=== PATIENT | male | born 1980 | race Caucasian/White ===

== ENCOUNTER 2018-06-05 03:08 | Emergency (ER) | payer SELFPAY ==
[~2018-06-05] VITALS: Ht 175.3 cm; Wt 117.9 kg
== END 2018-06-05 05:14 | disposition home or self-care (01) ==
LOC: ED 03:08
DX: T78.1XXA Other adverse food reactions, not elsewhere classified, initial encounter (principal); L29.9 Pruritus, unspecified; F17.200 Nicotine dependence, unspecified, uncomplicated; Z88.0 Allergy status to penicillin
CPT/HCPCS: 96374; 96375; 99283-25; J1200; J2930

== ENCOUNTER 2022-12-03 17:45 | Emergency (ER) | payer OTHER ==
[~2022-12-03] VITALS: Ht 175.3 cm; Wt 153.8 kg
[~2022-12-03 17:45] MED LIST: CLEOCIN HCL300 MG PO; HYDROCODON-ACE1 EA10 PO; LEVOFLOXACIN750 MG PO; NICOTINE LOZENGE4 MG BUCCAL
[2022-12-03 20:35] VITALS: BP 125/71
== END 2022-12-03 20:35 | disposition home or self-care (01) ==
LOC: ED 17:45
DX: T40.411A Poisoning by fentanyl or fentanyl analogs, accidental (unintentional), initial encounter (principal); R06.81 Apnea, not elsewhere classified; F17.200 Nicotine dependence, unspecified, uncomplicated; Z88.0 Allergy status to penicillin
CPT/HCPCS: 99283; J3490

== ENCOUNTER 2023-12-15 15:23 | Emergency (ER) | payer OTHER ==
[~2023-12-15] VITALS: Ht 175.3 cm; Wt 139.7 kg
[~2023-12-15 15:23] MED LIST changes: +ACETAMINOPHEN325 M1 PO; +CYCLOBENZAPRINE10 MG PO; +TAMIFLU75 MG PO
[2023-12-15 16:23] VITALS: BP 127/79
== END 2023-12-15 16:23 | disposition home or self-care (01) ==
LOC: ED 15:23
DX: S61.512A Laceration without foreign body of left wrist, initial encounter (principal); F17.200 Nicotine dependence, unspecified, uncomplicated; Z88.0 Allergy status to penicillin; W26.0XXA Contact with knife, initial encounter
CPT/HCPCS: 12004; 99282-25

== ENCOUNTER 2024-05-14 08:45 | Inpatient (IN) | payer OTHER ==
[~2024-05-14] VITALS: Ht 175.3 cm; Wt 135.1 kg
--- NOTE | 2024-05-14 01:40 | NUR ---
IN RM TO DO pt VS. pt RESTING ON HIS LEFT SIDE. pt DENIES ANY OTHER NEEDS AT THIS TIME. CALL LIGHT WITHIN REACH. ASSESSMENT DONE. pt ON 2LNC SATTING AT 95%.
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
[2024-05-14] MEDS ORDERED: DISKETS40 MG PO (09:14)
[2024-05-14] MEDS ORDERED: ACETAMINOPHEN 500 MG TAB PO ONE (09:15)
[2024-05-14 09:24] LABS: HEMATOCRIT 40.7 % (35.0-50.0); HEMOGLOBIN 13.4 g/dL (12.0-18.0); MCH 25.7 (27-36); MCHC 32.8 g/dl (30-36); MCV 78.5 fl (81-99); PLATELET COUNT 388 K/uL (140-440); RBC 5.19 M/ul (4.3-5.7); RDW 15.6 (10.5-15.0)
[2024-05-14] MEDS ORDERED: ondansetron HCL 4 MG/2 ML VIAL IV ONE (09:30)
[2024-05-14 09:39] LABS: ALBUMIN 2.2 g/dL (3.4-5.0); ALBUMIN/GLOBULIN RATIO 0.42 (1.1-2.4); ANION GAP 11.9 (7-21); BILIRUBIN, TOTAL 0.5 mg/dL (0.2-1.0); BUN/CREATININE RATIO 14.28 (6.0-28.6); CALCIUM 8.8 mg/dL (8.5-10.1); CREATININE, SERUM 0.84 mg/dL (0.70-1.30); POTASSIUM 2.9 mmol/L (3.5-5.1); PROTEIN, TOTAL 7.4 g/dL (6.4-8.2)
[2024-05-14] MEDS ORDERED: CEFTRIAXONE SODIUM 2 GM VIAL ONE (09:41)
[2024-05-14 09:44] LABS: LACTIC ACID, BLOOD 1.6 mmol/L (0.4-2.0)
[2024-05-14] MEDS ORDERED: AZITHROMYCIN 250 MG TAB PO ONE (09:45)
[2024-05-14] MEDS ORDERED: SODIUM CHLORIDE 0.9% 1,000 ML IV PRN (09:45)
[2024-05-14] MEDS ORDERED: CEFTRIAXONE SODIUM 2 GM in SODIUM CHLORIDE 0.9% 100 ML IV ONE (09:45)
[2024-05-14 10:01] LABS: BANDS, MANUAL DIFF 6; LYMPHOCYTES, MANUAL DIFF 19; MONOCYTES, MANUAL DIFF 5; NEUTROPHILS, MANUAL DIFF 70
[2024-05-14 10:11] LABS: BILIRUBIN, URINE NEGATIVE (negative); BLOOD/HGB, URINE TRACE-I (Negative); KETONE, URINE NEGATIVE (Negative); LEUK ESTERASE, URINE NEGATIVE (negative); NITRITE, URINE NEGATIVE (negative)
[2024-05-14 10:14] LABS: INFLUENZA B NAA NEGATIVE (NEGATIVE); RESPIRATORY SYNCYTIAL VIR NAA NEGATIVE (NEGATIVE)
[2024-05-14 10:24] LABS: BACTERIA, URINE NONE SEEN /hpf (negative); CRYSTALS, URINE NONE SEEN (0-1+); EPITHELIAL CELLS, URINE SQUAMOUS 1+ /lpf (0-1+); RED BLOOD CELLS, URINE 0-1 /hpf (0-5); WHITE BLOOD CELLS, URINE 0-1 /HPF (0-5)
[2024-05-14 10:25] LABS: CASTS, URINE NONE SEEN \\lpf; COLLECTION TYPE, URINE CLEAN CATCH; REFLEX CULTURE, URINE No (No)
[2024-05-14] MEDS ORDERED: POTASSIUM CHLORIDE 20 MEQ/15 ML CUP PO ONE (11:30)
[2024-05-14] MEDS ORDERED: ACETAMINOPHEN 325 MG TAB PO PRN (12:15)
[2024-05-14] MEDS ORDERED: SODIUM CHLORIDE 0.9% 1,000 ML IV SCH (12:15)
[2024-05-14] MEDS ORDERED: ondansetron HCL 4 MG/2 ML VIAL IV PRN (12:15)
--- NOTE | 2024-05-14 13:15 | NUR ---
PT REPORT RECIEVED FROM ED, RN. PT BROUGHT VIA STRETCHER TO [facility] FLOOR. PT IS CURRENTLY ON 2L NC O2 SAT 96%. PT REPORTED NO SOB, BUT STATES " HIS LUNGS BURN WHEN TAKING DEEP BREATHS". PT STATES HE DOES NOT NEED ANYTHING FOR PAIN AT THIS TIME. PT ORIENTED TO ROOM AND HAS NO CONCERNS AT THIS TIME CALL LIGHT IN REACH.
[2024-05-14 13:28] VITALS: BP 115/68
[2024-05-14 14:00] VITALS: BP 115/68
--- NOTE | 2024-05-14 15:11 | NUR ---
ALERT AND ORIENTED IN BED. OXYGEN PER NC IN PLACE. PATIENT LIVES IN HOUSE. STATES HE HAS NO STAIRS. NO DME. DRIVES AT BASELINE. HAS NO CURRENT PCP. PATIENT HAS NO FINANCIAL DIFFICULTIES AT THIS TIME. PLAN TO DC TO HOME WHEN MEDICALLY CLEARED. NO KNOWN CM NEEDS AT THIS TIME.
--- NOTE | 2024-05-14 15:26 | NUR ---
PT LAYING IN BED WITH 2L [address] PT REPORTS NO SOB AND STATES HE HAS NO CONCERNS AT THIS TIME CALL LIT IN REACH.
--- NOTE | 2024-05-14 16:12 | NUR ---
PT RESTING IN ROOM WITH EYES CHLOSED AND CHEST RISE EQUAL BILAT. PT HAS CALL LIGHT IN REACH.
[2024-05-14] MEDS ORDERED: ALBUTEROL SULFATE 0.083% 3 ML VIAL INH PRN (17:15)
--- NOTE | 2024-05-14 17:23 | EKG ---
[facility] [address] [facility] [place] [address] Signed Sinus tachycardia Nonspecific ST abnormality Abnormal ECG When compared with ECG of 29-JUN-2022 10:44, No significant change was found Confirmed by Alicia Hyman MD () on 05/14/2024 5:23:07 PM Electronically Signed By: ALICIA HYMAN MD 05/14/24 1723 PATIENT NAME: MONIEKRISTINE DAVID Electrocardiogram DATE OF : 84 PHYSICIAN: ALICIA HYMAN MD REPORT #: [id number] REPORT IS CONFIDENTIAL AND NOT TO BE RELEASED WITHOUT AUTHORIZATION
[2024-05-14 17:27] VITALS: BP 122/67
[2024-05-14] MEDS ORDERED: guaiFENesin 600 MG TABCR PO PRN (17:30)
[2024-05-14] MEDS ORDERED: METHADONE HCL 10 MG TAB PO SCH (17:30)
[2024-05-14] MEDS ORDERED: BENZONATATE 100 MG CAP PO PRN (17:30)
[2024-05-14 18:14] VITALS: BP 122/67
--- NOTE | 2024-05-14 18:17 | NUR ---
PT STATES LUNGS FEEL BETTER AFTER WORKING WITH RT. PT IS NOW TAKING A SHOWER. PT HAS NO CURRENT CONCERNS AT THIS TIME. CALL CORD IN REACH.
--- NOTE | 2024-05-14 18:52 | NUR ---
PT RETURNED TO BED AFTER HAVING A SHOWER, PT HAS PAIN /, NO SOB, PT HAS NO CONCERNS AT THIS TIME CALL LIGHT IN REACH.
--- NOTE | 2024-05-14 19:10 | NUR ---
REPORT RECEIVED FROM EDUARDA ALMONTE. pt RESTING IN THE BED. pt DENIES ANY NEEDS AT THIS TIME. BOARD UPDATED. CALL LIGHT WITHIN REACH.
[2024-05-14 21:00] VITALS: BP 117/64
[2024-05-14] MEDS ORDERED: MELATONIN 3 MG TAB PO PRN (21:00)
[2024-05-14 21:05] VITALS: BP 117/64
--- NOTE | 2024-05-14 21:05 | NUR ---
ASSESSMENT AND VITAL SIGNS DONE. EXP WHEEZES THROUGHT OUT LUNGS. pt SITTING UP IN THE BED. ICE WATER REFRESHED. pt DENIES ANY OTHER NEEDS AT THIS TIME. CALL LIGHT WITHIN REACH. IV ASSESSED, WNL.
--- NOTE | 2024-05-14 23:10 | NUR ---
IN RM TO CHECK ON pt. pt STATE HE IS HOT AND WOULD LIKE HIS TV TURNED DOWN THIS RN FOUND A TV REMOTE AND LEFT THE DOOR OPEN FOR pt TO COOL DOWN THE RM. pt DENIES ANY OTHER NEEDS AT THIS TIME. CALL LIGHT WITHIN REACH.
[2024-05-15] VITALS (11 sets, daily range): BP systolic 101–144; BP diastolic 51–81
--- NOTE | 2024-05-15 03:32 | NUR ---
pt RESTING IN THE BED WITH EYES CLOSED. RR EVEN AND UNLABORED. CALL LIGHT WITHIN REACH.
[2024-05-15 06:01] LABS: HEMATOCRIT 36.4 % (35.0-50.0); MCH 25.9 (27-36); MCHC 33.1 g/dl (30-36); MCV 78.3 fl (81-99); PLATELET COUNT 386 K/uL (140-440); RBC 4.64 M/ul (4.3-5.7); RDW 15.9 (10.5-15.0)
--- NOTE | 2024-05-15 06:04 | NUR ---
VITAL SIGNS DONE. pt DENIES ANY OTHER NEEDS AT THIS TIME. CALL LIGHT WITHIN REACH.
[2024-05-15 06:19] LABS: ALBUMIN 1.6 g/dL (3.4-5.0); ALBUMIN/GLOBULIN RATIO 0.34 (1.1-2.4); ANION GAP 10.2 (7-21); BILIRUBIN, TOTAL 0.3 mg/dL (0.2-1.0); BUN/CREATININE RATIO 11.68 (6.0-28.6); CREATININE, SERUM 0.77 mg/dL (0.70-1.30); MAGNESIUM 2.1 mg/dL (1.8-2.4); POTASSIUM 3.2 mmol/L (3.5-5.1); PROTEIN, TOTAL 6.3 g/dL (6.4-8.2)
[2024-05-15 06:28] LABS: LYMPHOCYTES, MANUAL DIFF 26; NEUTROPHILS, MANUAL DIFF 74
--- NOTE | 2024-05-15 07:53 | NUR ---
PT UP TO CHAIR FOR BREAKFAST - C/O 5/10 PAIN IN LEFT RIB/CHEST. PRN REQUESTED. 1L NC IN PLACE, SP02 90% ON CPOX. NEW BED LINENS. CALL LIGHT IN REACH.
[2024-05-15] MEDS ORDERED: CEFTRIAXONE SODIUM 2 GM VIAL ONE (07:57)
[2024-05-15] MEDS ORDERED: AZITHROMYCIN 500 MG VIAL ONE (07:57)
--- NOTE | 2024-05-15 08:20 | NUR ---
AM ASSESSMENT COMPLETE - DIM/COURSE LUNG SOUNDS IN LEFT UPPER LOBE. PT WITHOUT DYSPNEA WITH ACTIVITY. PRN ADMINISTERED FOR 5/10 PAIN IN RIBS. 1L NC TITRATED TO 2 L TO AMBULATE TO BATHROOM. IV SITE PATENT, ABX STARTED. CALL LIGHT IN REACH.
[2024-05-15] MEDS ORDERED: POTASSIUM CHLORIDE 40 MEQ,LIDOCAINE HCL 1% 40 MG in DEXTROSE 5% 250 ML IV ONE (08:30)
[2024-05-15] MEDS ORDERED: ENOXAPARIN SODIUM 40 MG/0.4 ML SYR SUB-Q SCH (09:00)
[2024-05-15] MEDS ORDERED: CEFTRIAXONE SODIUM 2 GM in SODIUM CHLORIDE 0.9% 100 ML IV SCH (09:00)
[2024-05-15] MEDS ORDERED: AZITHROMYCIN 500 MG in DEXTROSE 5% 250 ML IV SCH (09:00)
--- NOTE | 2024-05-15 09:30 | NUR ---
UR CLINICAL REVIEW: [facility] [place] MEETS CRITERIA FOR PNEUMONIA WITH CONTINUED TACHYCARDIA BASIC DMAP INPT 05/14/24 @ 1210 ORDER MATCHES REG NO AUTH REQUIRED PER MEDICAID GUIDELINES DISCHARGE TO HOME IN 1-2 DAYS 05/17/24
--- NOTE | 2024-05-15 09:45 | NUR ---
PT BACK TO BED AFTER BREAKFAST - NOTED TO BE INCREASINGLY DIAPHORETIC AND PT STATES HE DOES "NOT FEEL GOOD". PT REPORTS FEELING "DISORIENTED" BUT UNABLE TO PROVIDE DETAILS TO WHY HE FEELS WORSE. ABLE TO ANSWER ORIENTATION QUESTIONS. ASSESSMENT UNCHANGED FROM PREVIOUS - NO SOB, PAIN 0/10, VS STABLE. PRN TYLENOL GIVEN EARLY IN AM - UNKNOWN TEMP AT THAT TIME. AFEBRILE NOW. ATE 100% OF BREAKFAST 1 HOUR PRIOR. DENIES NAUSEA. DRY PLACER MACHINE OPERATOR AT BEDSIDE TO SECOND ASSESSMENT. WILL CONTINUE TO MONITOR CLOSELY. NASAL CANULA CHANGED TO OXYMASK FOR PT COMFORT - STATES "MUCH BETTER". CALL LIGHT IN REACH.
--- NOTE | 2024-05-15 10:40 | NUR ---
RN ROUNDING ON PT - RESTING IN BED WITH OXYMASK IN PLACE, SP02 STABLE ON CPOX. REMAINS DIAPHORETIC, WIPING FACE WITH RAG. CALL LIGHT IN REACH.
--- NOTE | 2024-05-15 11:05 | NUR ---
RN IN ROOM TO START K+ INFUSION. PT RESTING IN BED WITH OXYMASK IN PLACE, CP0X READING 95% SPO2 ON 2L. PT NOTED TO SNORE WITHOUT APNEA OR DESATURATION. NO DISTRESS NOTED. CALL LIGHT IN REACH.
--- NOTE | 2024-05-15 11:28 | NUR ---
PATIENT APPEARS TO BE SLEEPING. WILL RETURN TO SPEAK WITH HIM LATER TODAY.
[2024-05-15] MEDS ORDERED: PHARMACY RENAL DOSE ADJUSTMENT 1 DOSE MISC PO SCH (12:00)
--- NOTE | 2024-05-15 12:34 | NUR ---
MED REC COMPLETE
--- NOTE | 2024-05-15 12:55 | NUR ---
PT RESTING IN BED WITH OXYMASK IN PLACE, AWAKE AND ALERT. STATES HE FEELS BETTER THAN THIS AM - SOME DIAPHORESIS ON FOREHEAD, IMPROVED. DENIES NEEDS AT THIS TIME. CALL LIGHT IN REACH.
--- NOTE | 2024-05-15 14:30 | NUR ---
RN IN ROOM TO ASSESS PT - EXPIRATORY WHEEZE NOTED THROUGHOUT POSTERIOR LUNG BLACK. 2L ON OXY MASK, CPOX IN PLACE. PT REPORTS MILD HEADACHE AND REPORTS NORMALLY DRINKING CAFFEINE - PEPSI REQUESTED AND PURCHASED FROM [employer] USING PT VOUCHER. VS STABLE, REMAINS AFEBRILE, MILD DIAPHORESIS. CALL LIGHT IN REACH.
--- NOTE | 2024-05-15 16:59 | NUR ---
RN IN ROOM TO ATTEND TO IV ALARM. PT UP TO BATHROOM TO BRUSH TEETH ON ROOM AIR. SP02 85% ONCE BACK TO BED, OXYMASK PLACED BACK ON AND EDUCATION PROVIDED TO PT REGARDING GOAL SP02 AND ACTIVITY INTOLERANCE. DINNER PROVIDED. PT DENIES FURTHER NEEDS. CALL LIGHT IN PLACE.
--- NOTE | 2024-05-15 19:15 | NUR ---
REPORT RECEIVED FROM NICHOLAS ALMONTE. pt RESTING IN THE BED. BOARD UPDATED. NO OTHER NEEDS AT THIS TIME. CALL LIGHT WITHIN REACH.
--- NOTE | 2024-05-15 21:04 | NUR ---
SALESPERSON RECREATIONAL VEHICLES OBTAINED VITALS AND I&O. PT STATES NO NEEDS AT THIS TIME. CALL LIGHT WITHIN REACH.
--- NOTE | 2024-05-15 21:45 | NUR ---
ASSESSMENT DONE. pt HAS EXP WHEEZES IN BILAT LUNGS. pt RESTING IN THE BED. pt SATTING AT 97% ON 2L OXYMASK. pt DENIES ANY OTHER NEEDS AT THIS TIME. CALL LIGHT WITHIN REACH.
--- NOTE | 2024-05-15 23:28 | NUR ---
pt RESTING IN THE BED. pt DENIES ANY OTHER NEEDS AT THIS TIME. CALL LIGHT WITHIN REACH.
[2024-05-16] VITALS (9 sets, daily range): BP systolic 125–143; BP diastolic 53–71
--- NOTE | 2024-05-16 01:54 | NUR ---
pt RESTING IN THE BED WITH EYES CLOSED. RR EVEN AND UNLABORED. CALL LIGHT WITHIN REACH.
--- NOTE | 2024-05-16 03:35 | NUR ---
pt RESTING IN THE BED WITH EYES CLOSED. RR EVEN AND UNLABORED. CALL LIGHT WITHIN REACH.
--- NOTE | 2024-05-16 06:00 | NUR ---
VITAL SIGNS DONE. pt RESTED THROUGH THE NIGHT WITH 2L OXYMASK ON SATTING AT 95%. pt UP TO THE BR. pt BACK TO THE BED. pt DENIES ANY OTHER NEEDS AT THIS TIME CALL LIGHT WITHIN REACH.
[2024-05-16 06:22] LABS: MCHC 33.2 g/dl (30-36); MCV 78.3 fl (81-99); PLATELET COUNT 405 K/uL (140-440); RBC 4.59 M/ul (4.3-5.7); RDW 16.1 (10.5-15.0)
[2024-05-16 06:36] LABS: ALBUMIN 1.7 g/dL (3.4-5.0); ALBUMIN/GLOBULIN RATIO 0.38 (1.1-2.4); ANION GAP 11.1 (7-21); BILIRUBIN, TOTAL 0.2 mg/dL (0.2-1.0); BUN/CREATININE RATIO 16.39 (6.0-28.6); CALCIUM 8.4 mg/dL (8.5-10.1); CREATININE, SERUM 0.61 mg/dL (0.70-1.30); POTASSIUM 4.1 mmol/L (3.5-5.1); PROTEIN, TOTAL 6.2 g/dL (6.4-8.2)
[2024-05-16 07:09] LABS: BANDS, MANUAL DIFF 10; BASOPHILS, MANUAL DIFF 1; EOSINOPHILS, MANUAL DIFF 4; LYMPHOCYTES, MANUAL DIFF 14; MONOCYTES, MANUAL DIFF 14; NEUTROPHILS, MANUAL DIFF 57
--- NOTE | 2024-05-16 07:35 | NUR ---
RECIEVED SHIFT REPORT. PT RESTING IN BED, EYES CLOSED, BREATHING EVEN AND UNLABORED. OXYMASK REMOVED, CPOX SPO2 91% ON RA. CALL LIGHT IN REACH.
[2024-05-16] MEDS ORDERED: METHADONE HCL 10 MG TAB PO SCH (09:00)
[2024-05-16] MEDS ORDERED: BUDESONIDE 0.5 MG/2 ML VIAL INH SCH (09:38)
[2024-05-16] MEDS ORDERED: AZITHROMYCIN 500 MG VIAL ONE (09:46)
[2024-05-16] MEDS ORDERED: CEFTRIAXONE SODIUM 2 GM VIAL ONE (09:47)
--- NOTE | 2024-05-16 10:01 | NUR ---
FOLLOW-UP APPOINTMENT SCHEDULED WITH HENOK LANDERS PA-C AT [facility] FOR MAY 27 @ 0900. PATIENT NOTIFIED. STATES HE CURRENTLY HAS NO OTHER KNOWN CM NEEDS AT THIS TIME. REMAINS ON OXYGEN.
--- NOTE | 2024-05-16 10:37 | NUR ---
IV PUMP ALARMING, IV ABX COMPLETED. NEW BAG IV FLUIDS HUNG - SEE MAY. PRIMARY RN ARRIVED. PT RESTING WITH EYES CLOSED, DID NOT HAVE ANY CONCERNS. CALL LIGHT WITHIN REACH, PT ALLOWED TO CONTINUE TO SLEEP.
[2024-05-16] MEDS ORDERED: ALBUTEROL/IPRATROPIUM 3 ML NEB INH SCH (12:00)
--- NOTE | 2024-05-16 12:41 | NUR ---
[facility] AND REM[facility]%. LIKELY SLEEP APNEA. PATIENT WILL CALL IF OXIMTER ALARMING.
--- NOTE | 2024-05-16 12:43 | NUR ---
RT WORKING WITH PT, REQUESTED ASSISTANCE TO GET PATIENT UP TO CHAIR FOR LUNCH.
--- NOTE | 2024-05-16 12:44 | NUR ---
RT CALLED REQUESTING ASSISTANCE TO GET PATIENT UP TO CHAIR FOR LUNCH. PT SATS 93% ON RA AT THIS TIME. PT LEFT UP IN CHAIR AT THIS TIME ON RA. ALL PT CARE NEEDS MET AT THIS TIME. PT DECLINED OPENING WINDOW SHADES/LIGHTS ON. CALL LIGHT WITHIN REACH.
--- NOTE | 2024-05-16 14:00 | NUR ---
pt up in recliner, denies needs at this time. call light in reach.
--- NOTE | 2024-05-16 18:01 | NUR ---
PT DENIES NEEDS AT THIS TIME, CALL LIGHT IN REACH.
--- NOTE | 2024-05-16 18:30 | NUR ---
PT OUT OF SHOWER, IS SATISFIED. CONNECTED BACK TO IVF. DENIES DISCOMFORT. CALL LIGHT IN REACH
--- NOTE | 2024-05-16 18:33 | NUR ---
PT WALKING THE HALLS W/ FRIEND. STEADY ON FEET. TOLERATING WELL.
--- NOTE | 2024-05-16 19:02 | NUR ---
GAGE BURNS SALINE LOCKED PATIENT'S IV SO THEY COULD SHOWER. PATIENT SHOWERED WITH SET UP ASSISTANCE ONLY AT 1800. A CLEAN GOWN AND SOCKS WERE PROVIDED.
--- NOTE | 2024-05-16 19:26 | NUR ---
RECEIVED REPORT FROM GAGE BURNS. PT RESTING IN BED, DENIES NEEDS AT THIS TIME.
--- NOTE | 2024-05-16 20:15 | NUR ---
PT RESTING IN BED. VSS. DENIES PAIN-REPORTS WANTING TO CHECKOUT TONIGHT GF IS IN ER-INFORMED PT THAT WOULD BE LEAVING AMA AND ENCOURAGED TO STAY UNTIL MD DISCHARGES. PT AGREEABLE AT THIS TIME. LSC. ON RA. CPOX IN PLACE. DENIES SOB. PT HAS CORNET AT BEDSIDE-ENC USE. HRR. BTA. VOIDS WNL. IND W/ AMBULATION. LW IV INFUSING NS @ 125MLS/HR. CALL LIGHT WITHIN REACH. PT'S OWN PEPSI AND FRESH WATER PROVIDED PER REQUEST.
--- NOTE | 2024-05-16 20:51 | NUR ---
"DAVID" IS AWAKE SITTING UPRIGHT IN BED W/HOB AT 50 DEGREES. HE IS ABLE TO DO THE CORNET LEVEL 5 W/O DIFFICULTY
--- NOTE | 2024-05-16 21:04 | NUR ---
DR JAIME UPDATED VIA PHONE OF pt's BRIEF DESIRE/INTEREST IN LEAVING HOSPITAL TONIGHT (AMA) EARLIER IN SHIFT D/T SIG OTHER BEING SICK. SEE NOTE FROM PRIMARY RN REGARDING CONVERSATION. pt CALM AND RELAXED PER PRIMARY RN AND pt AGREES TO STAY. NO NEW ORDERS RECEIVED AT THIS TIME.
--- NOTE | 2024-05-16 22:53 | NUR ---
PT AWAKE, DENIES NEEDS.
--- NOTE | 2024-05-17 01:35 | NUR ---
PT SLEEPING, APPEARS COMFORTABLE.
--- NOTE | 2024-05-17 03:42 | NUR ---
PT ASLEEP, TALKING IN SLEEP. APPEARS COMFORTABLE.
[2024-05-17 05:07] VITALS: BP 144/67
[2024-05-17 05:15] LABS: HEMOGLOBIN 11.6 g/dL (12.0-18.0); MCH 25.9 (27-36); MCHC 33.1 g/dl (30-36); MCV 78.2 fl (81-99); PLATELET COUNT 450 K/uL (140-440); RBC 4.48 M/ul (4.3-5.7); RDW 16.2 (10.5-15.0)
[2024-05-17 05:18] VITALS: BP 144/67
[2024-05-17 05:29] LABS: ALBUMIN 1.8 g/dL (3.4-5.0); ALBUMIN/GLOBULIN RATIO 0.39 (1.1-2.4); ANION GAP 9.8 (7-21); BILIRUBIN, TOTAL 0.2 mg/dL (0.2-1.0); BUN/CREATININE RATIO 11.59 (6.0-28.6); CALCIUM 8.4 mg/dL (8.5-10.1); CREATININE, SERUM 0.69 mg/dL (0.70-1.30); EOSINOPHILS, MANUAL DIFF 3; LYMPHOCYTES, MANUAL DIFF 34; NEUTROPHILS, MANUAL DIFF 63; POTASSIUM 3.8 mmol/L (3.5-5.1); PROTEIN, TOTAL 6.4 g/dL (6.4-8.2)
--- NOTE | 2024-05-17 07:29 | NUR ---
RECIEVED SHIFT REPORT FROM GAGE KNAPP. PT IS AWAKE IN BED, DENIES NEEDS. CALL LIGHT IN REACH.
[2024-05-17] MEDS ORDERED: CEFTRIAXONE SODIUM 2 GM VIAL ONE (08:46)
[2024-05-17 09:50] VITALS: BP 119/68
[2024-05-17] MEDS ORDERED: MUCINEX600 MG PO (10:08)
[2024-05-17] MEDS ORDERED: DOXYCYCLINE HY100 MG PO (10:08)
[2024-05-17 10:16] VITALS: BP 119/68
--- NOTE | 2024-05-17 10:30 | NUR ---
Pt on the phone calling for a ride. States his can't greens picker as she is at work. Let him know we can give him a courtesy taxi ride. He denies other needs. Roll Clamp Operator notified and will call the taxi for transport in town.
== END 2024-05-17 10:45 | disposition home or self-care (01) | DRG 871 ==
LOC: ED 08:45 → MS 12:36
PROVIDERS: Emergency Medicine; ADMIT Family Medicine; ATTEND Family Medicine
DX: A41.9 Sepsis, unspecified organism (principal); J18.9 Pneumonia, unspecified organism; Z68.41 Body mass index [BMI] 40.0-44.9, adult; F17.210 Nicotine dependence, cigarettes, uncomplicated; F11.90 Opioid use, unspecified, uncomplicated; E66.01 Morbid (severe) obesity due to excess calories; E87.6 Hypokalemia; G47.30 Sleep apnea, unspecified; Z88.0 Allergy status to penicillin; Z98.890 Other specified postprocedural states
CPT/HCPCS: 36415; 51701; 71045; 80053; 81001; 83605; 83735; 84100; 85025; 87040; 87502; 93005; 93010; 94640; 94668; 94762; 94799; 99285-25; A9270; J0456; J0696; J1650; J2405; J3480; J3490; J7030; J7060; U0002

== ENCOUNTER 2024-08-02 22:49 | Emergency (ER) | payer OTHER ==
[~2024-08-02] VITALS: Ht 175.3 cm; Wt 135.1 kg
[~2024-08-02 22:49] MED LIST changes: +DISKETS40 MG PO; +DOXYCYCLINE HY100 MG PO; +MUCINEX600 MG PO
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
[2024-08-02] MEDS ORDERED: CEFTRIAXONE SODIUM 2 GM in SODIUM CHLORIDE 0.9% 100 ML IV ONE (23:00)
[2024-08-02] MEDS ORDERED: SODIUM CHLORIDE 0.9% 1,000 ML IV ONE (23:00)
[2024-08-02 23:29] LABS: BASOPHILS 0.3 % (0.2-1.2); EOSINOPHILS 0.8 % (0.8-7.0); HEMATOCRIT 44.8 % (40.1-51.0); HEMOGLOBIN 14.2 g/dL (13.7-17.5); LYMPHOCYTES 10.2 % (21.8-53.1); MCH 26.2 PG (25.7-32.2); MCHC 31.7 g/dL (32.3-36.5); MCV 82.7 fL (79.0-92.2); MONOCYTES 5.4 % (5.3-12.2); NEUTROPHILS 82.9 % (34.0-67.9); PLATELET COUNT 326 K/uL (163-337); RBC 5.42 M/uL (4.63-6.08)
[2024-08-02 23:41] LABS: INR 1.04 (0.80-1.30)
[2024-08-02 23:45] LABS: ALBUMIN 3.2 g/dL (3.4-5.0); ALBUMIN/GLOBULIN RATIO 0.76 (1.1-2.4); ANION GAP 10.7 (7-21); BILIRUBIN, TOTAL 0.5 mg/dL (0.2-1.0); CALCIUM 9.2 mg/dL (8.5-10.1); POTASSIUM 3.7 mmol/L (3.5-5.1); PROTEIN, TOTAL 7.4 g/dL (6.4-8.2)
[2024-08-02] MEDS ORDERED: HYDROmorphone HCL 1 MG/ML SYR IV PRN (23:45)
[2024-08-02] MEDS ORDERED: ALBUTEROL/IPRATROPIUM 3 ML NEB INH ONE (23:45)
[2024-08-03 00:06] LABS: CORONAVIRUS COVID-19 AG NEGATIVE (NEGATIVE)
[2024-08-03] MEDS ORDERED: HYDROmorphone HCL 1 MG/ML SYR IV ONE (00:15)
[2024-08-03 00:59] LABS: BILIRUBIN, URINE NEGATIVE (negative); BLOOD/HGB, URINE NEGATIVE (Negative); KETONE, URINE NEGATIVE (Negative); LEUK ESTERASE, URINE NEGATIVE (negative); NITRITE, URINE NEGATIVE (negative); PH, URINE 6.5 (5-7)
[2024-08-03] MEDS ORDERED: KETOROLAC TROMETHAMINE 30 MG/ML VIAL IV ONE (02:00)
[2024-08-03] MEDS ORDERED: levoFLOXacin 750 MG TAB PO ONE (02:00)
[2024-08-03] MEDS ORDERED: ALBUTEROL SULFATE 8 GM HOME.PACK INH ONE (02:00)
[2024-08-03] MEDS ORDERED: METOPROLOL TARTRATE 5 MG/5 ML VIAL IV ONE (02:00)
[2024-08-03] MEDS ORDERED: methylPREDNISolone 4 MG HOME.PACK PO ONE (02:00)
[2024-08-03] MEDS ORDERED: LEVOFLOXACIN750 MG PO (02:04)
[2024-08-03] MEDS ORDERED: HYDROCODON-ACE1 EA10 PO (02:09)
[2024-08-03] MEDS ORDERED: diazePAM 10 MG/2 ML SYR IV ONE (02:15)
[2024-08-03] MEDS ORDERED: HYDROCODONE BIT/ACETAMINOPHEN 5/325 MG 1 TAB HOME.PACK PO ONE (02:15)
[2024-08-03 02:37] LABS: AMPHETAMINES, URINE POSITIVE (NEGATIVE); BENZODIAZEPINE, URINE NEGATIVE (NEGATIVE); BUPRENORPHINE, URINE NEGATIVE (NEGATIVE); CANNABINOID, URINE POSITIVE (NEGATIVE); COCAINE, URINE POSITIVE (NEGATIVE); ECSTASY, URINE POSITIVE (NEGATIVE); FENTANYL, URINE POSITIVE (NEGATIVE); METHADONE, URINE NEGATIVE (NEGATIVE); OPIATES, URINE NEGATIVE (NEGATIVE); OXYCODONE, URINE NEGATIVE (NEGATIVE); PHENCYCLIDINE, URINE NEGATIVE (NEGATIVE)
[2024-08-03 02:39] LABS: BARBITURATES, URINE NEGATIVE (NEGATIVE)
[2024-08-03 02:40] VITALS: BP 131/74
--- NOTE | 2024-08-03 12:11 | EKG ---
[facility] [address] [facility] [place] [address] Signed Sinus tachycardia Otherwise normal ECG When compared with ECG of 14-MAY-2024 09:01, No significant change was found Confirmed by Gordon Jaime DO ([id number]) on 08/03/2024 12:10:47 PM Electronically Signed By: GORDON JAIME DO 08/03/24 1211 PATIENT NAME: MONIEKRISTINE DAVID Electrocardiogram DATE OF : 84 PHYSICIAN: GORDON JAIME DO REPORT #: [id number] REPORT IS CONFIDENTIAL AND NOT TO BE RELEASED WITHOUT AUTHORIZATION
== END 2024-08-03 02:40 | disposition home or self-care (01) ==
LOC: ED 22:49
PROVIDERS: Family Medicine
DX: J18.9 Pneumonia, unspecified organism (principal); F17.200 Nicotine dependence, unspecified, uncomplicated; Z88.0 Allergy status to penicillin
CPT/HCPCS: 36415; 71045; 71260; 80053; 80307; 81003; 83605; 85025; 85379; 85610; 85730; 87040; 93005; 93010; 94640; 94664; 99285-25; A9270; J0696; J1171; J1885; J3360; J7030; Q9967